=== PATIENT | male | born 1955 | race Caucasian/White ===

== ENCOUNTER 2018-08-25 18:46 | Emergency (ER) | payer BC, OTHER ==
[2018-08-25 19:15] LABS: Absolute Lymphocytes (CBC) 1.7 K/uL (0.7-4.9); Absolute Monocytes 0.6 K/uL (0.1-1.3); Absolute Neutrophil 2.7 K/uL (1.8-8.0); Basophils % 1.1 % (0-1.3); Eosinophils % 1.4 % (0-4.4); Hematocrit 36.7 % (39.6-49.0); Lymphocytes % 33.7 % (15.3-44.8); MCH 29.1 pg (27.0-35.0); MCV 88.8 fL (80-100); RBC Red Blood Cell Count 4.14 M/uL (4.33-5.43)
[2018-08-25 19:26] LABS: BUN Blood Urea Nitrogen 18 mg/dL (7-18); Bicarbonate 26 mmol/L (21-32); Glucose Level 101 mg/dL (74-106); Potassium 3.8 mmol/L (3.5-5.1); Sodium Level 141 mmol/L (136-145)
--- NOTE | 2018-08-25 19:54 | EDPHYS ---
Physician Documentation [facility] Name: Stephen Odell Age: 63 yrs Sex: Male : 1955 Arrival Date: 08/25/2018 Time: 18:48 Bed 2 Private MD: ED Physician Rayna Fajardo HPI: 08/25 19:48 This 63 yrs old Male presents to ER via EMS with complaints of Puncture Wound ma2 To Arm. 19:48 The patient or guardian complains of a laceration. The complaints affect the dorsal ma2 aspect of left forearm. Context: accidently lacerated left forearm with pocket knife . Onset: The symptoms/episode began/occurred suddenly, 1 hour(s) ago. Treatment prior to arrival includes: no previous treatment. Associated signs and symptoms: Pertinent positives: bleeding, Pertinent negatives: decreased range of motion, nausea, numbness, swelling, vomiting. Severity of symptoms: At their worst the symptoms were severe, in the emergency department the symptoms are unchanged. Historical: - Allergies: 19:02 No Known Allergies; sv - Home Meds: 19:02 Toprol XL Oral [Active]; Nexium Oral [Active]; sv - PMHx: 19:02 Hypertension; sv - PSHx: 19:02 Gastric Bypass; sv - Immunization history:: Adult Immunizations unknown. - Social history:: Patient/guardian denies using alcohol, street drugs, The patient lives with family, Smoking status: unknown. - Ebola Screening: : Patient negative for fever greater than or equal to 101.5 degrees Fahrenheit, and additional compatible Ebola Virus Disease symptoms Patient denies exposure to infectious person Patient denies travel to an Ebola-affected area in the 21 days before illness onset. ROS: 19:48 Constitutional: Negative for fever, chills, and weight loss, Cardiovascular: Negative ma2 for chest pain, palpitations, and edema, Respiratory: Negative for shortness of breath, cough, wheezing, and pleuritic chest pain. 19:48 Neuro: Negative for headache, weakness, numbness, tingling, and seizure. 19:48 MS/extremity: Positive for laceration, pain, paresthesias, puncture, Negative for decreased range of motion, rash, tenderness. 19:48 All other systems are negative. Exam: 19:48 Constitutional: This is a well developed, well nourished patient who is awake, alert, ma2 and in no acute distress. Head/Face: Normocephalic, atraumatic. Chest/axilla: Normal chest wall appearance and motion. Nontender with no deformity. No lesions are appreciated. Cardiovascular: Regular rate and rhythm with a normal S1 and S2. No gallops, murmurs, or rubs. Normal PMI, no JVD. No pulse deficits. Respiratory: Lungs have equal breath sounds bilaterally, clear to auscultation and percussion. No rales, rhonchi or wheezes noted. No increased work of breathing, no retractions or nasal flaring. Abdomen/GI: Soft, non-tender, with normal bowel sounds. No distension or tympany. No guarding or rebound. No evidence of tenderness throughout. MS/ Extremity: Pulses equal, no cyanosis. Neurovascular intact. Full, normal range of motion. Neuro: Awake and alert, GCS 15, oriented to person, place, time, and situation. Cranial nerves II-XII grossly intact. Motor strength 5/5 in all extremities. Sensory grossly intact. Cerebellar exam normal. Normal gait. 19:48 Musculoskeletal/extremity: puncture wound of left forearm with left radial artery laceration. Vital Signs: 18:42 BP 125 / 83; Pulse 57; Resp 20; Temp 97.8; Pulse Ox 100% ; Weight 117.93 kg; Height 5 sv ft. 9 in. (175.26 cm); Pain 0/10; 19:38 BP 131 / 86; Pulse 71; Resp 16; Pulse Ox 98% on R/A; ao 20:10 BP 131 / 92; Pulse 72; Resp 16; Pulse Ox 100% ; Pain 5/10; ao 18:42 Body Mass Index 38.39 (117.93 kg, 175.26 cm) sv MDM: 18:48 Patient medically screened. ma2 19:50 Differential diagnosis: left radial artery laceration 1 hour ago, tourniquet released ma2 in ER, will give tourniquet release q 15 min. Data reviewed: vital signs, nurses notes, radiologic studies. Counseling: I had a detailed discussion with the patient and/or guardian regarding: the historical points, exam findings, and any diagnostic results supporting the discharge/admit diagnosis, the presence of at least one elevated blood pressure reading (>120/80) during this emergency department visit, the need to transfer to another facility. ED course: discussed and accepted by hand surgeon at [facility] Dr. Do. 08/25 18:49 Order name: Basic Metabolic Panel sv 08/25 18:49 Order name: CBC with Diff sv 08/25 18:49 Order name: Creatinine for Radiology sv 08/25 18:49 Order name: Type And Screen sv 08/25 20:06 Order name: ABO/RH no charge EDMS 08/25 18:49 Order name: Labs collected and sent; Complete Time: 19:14 sv 08/25 19:14 Order name: IV Saline Lock - Large Bore; Complete Time: 19:14 sv 08/25 19:37 Order name: Dressing - Wound: pressure dressing, release tornique every 15 min; ma2 Complete Time: 20:14 Administered Medications: 19:00 Drug: NS 0.9% 1000 ml Route: IV; Rate: 1 bolus; Site: right antecubital; ao 19:50 Follow up: IV Status: Completed infusion; IV Intake: 1000ml ao 20:16 Follow up: IV Status: Infusion continued upon transfer ao 20:15 Drug: NS 0.9% 1000 ml {Note: Given to life flight.} Route: IV; Rate: 1 bolus; Site: ao left antecubital; 20:16 Follow up: IV Status: Infusion continued upon transfer ao Disposition: 08/25/18 19:53 Transfer ordered to [facility]. Diagnosis is Laceration of radial artery at forearm level, left arm. - Reason for transfer: Higher level of care. - Accepting physician is Dr. Do, hand surgeon . - Condition is Stable. - Problem is new. - Symptoms are unchanged. Signatures: Dispatcher [employer] EDTamie Barroso RN RN Fransisco Castro RN RN Rayna Albert MD MD ma2 Corrections: (The following items were deleted from the chart) 20:25 19:53 08/25/2018 19:53 Transfer ordered to [facility]. ao Diagnosis is Laceration of radial artery at forearm level, left arm. Reason for transfer: Higher level of care. Accepting physician is Dr. Do, hand surgeon . Condition is Stable. Problem is new. Symptoms are unchanged. ma2
--- NOTE | 2018-08-25 19:54 | ER ---
Nurse's Notes [facility] Name: Stephen Odell Age: 63 yrs Sex: Male : 1955 Arrival Date: 08/25/2018 Time: 18:48 Bed 2 Private MD: Diagnosis: Laceration of radial artery at forearm level, left arm Presentation: 08/25 18:42 Presenting complaint: EMS states: puncture wound to the left forearm by a pocket knife, sv went in about an inch. Pt drove from [facility] to [facility] station with knife still in place. EMS removed knife and applied a tourniquet at 1806. Blood loss about 500 mls. Pt was pale, diaphoretic and hypotensive, 18 G to R and L AC done and NS 1L and LR 1L infusing. Transition of care: patient was not received from another setting of care. Onset of symptoms was August 25, 2018 at 17:40. Care prior to arrival: IV initiated. 18 GA, in the left in the right antecubital area. 18:42 Method Of Arrival: EMS: [facility] sv 18:42 Acuity: KATRINA 2 sv 19:03 Risk Assessment: Do you want to hurt yourself or someone else? Patient reports no sv desire to harm self or others. Initial Sepsis Screen: Does the patient meet any 2 criteria? No. Patient's initial sepsis screen is negative. Does the patient have a suspected source of infection? No. Patient's initial sepsis screen is negative. Triage Assessment: 18:42 General: Appears uncomfortable, obese, well developed, Behavior is calm, cooperative, sv appropriate for age. Pain: Complains of pain in left arm Pain currently is 0 out of 10 on a pain scale. Pain began 1 hour ago. Is continuous. EENT: No signs and/or symptoms were reported regarding the EENT system. Neuro: Level of Consciousness is awake, alert, obeys commands, Oriented to person, place, time, situation, Moves all extremities. Speech is normal. Cardiovascular: Patient's skin is warm and dry. Rhythm is sinus rhythm. Respiratory: Respiratory effort is even, unlabored, Respiratory pattern is regular, symmetrical. Derm: Skin is normal. Injury Description: Puncture sustained to dorsal aspect of left forearm was sustained 1-2 hours ago. Historical: - Allergies: 19:02 No Known Allergies; sv - Home Meds: 19:02 Toprol XL Oral [Active]; Nexium Oral [Active]; sv - PMHx: 19:02 Hypertension; sv - PSHx: 19:02 Gastric Bypass; sv - Immunization history:: Adult Immunizations unknown. - Social history:: Patient/guardian denies using alcohol, street drugs, The patient lives with family, Smoking status: unknown. - Ebola Screening: : Patient negative for fever greater than or equal to 101.5 degrees Fahrenheit, and additional compatible Ebola Virus Disease symptoms Patient denies exposure to infectious person Patient denies travel to an Ebola-affected area in the 21 days before illness onset. Screenin:03 Abuse screen: Denies threats or abuse. Denies injuries from another. Nutritional sv screening: No deficits noted. Tuberculosis screening: No symptoms or risk factors identified. Fall Risk None identified. Assessment: 19:10 General: Appears in no apparent distress. uncomfortable, Behavior is appropriate for ao age. Pain: Complains of pain in left arm. Neuro: Level of Consciousness is awake, alert, obeys commands, Oriented to person, place, time, situation, Appropriate for age Moves all extremities. Full function Speech is normal. Cardiovascular: Heart tones S1 S2 Capillary refill is sluggish in left fingers. Respiratory: Airway is patent Respiratory effort is even, unlabored, Respiratory pattern is regular, symmetrical, Breath sounds are clear bilaterally. GI: Abdomen is round obese. : No signs and/or symptoms were reported regarding the genitourinary system. EENT: No signs and/or symptoms were reported regarding the EENT system. Derm: Skin is black, Left arm. Musculoskeletal: No signs and/or symptoms reported regarding the musculoskeletal system. Injury Description: Puncture sustained to left arm is Applied dressing in the left forearm by day shift. 19:50 Reassessment: Report given to [employer]. Estimated time is 23 min. Reassessment: ao Release tourniquet as order by Dr berry. bleeding controlled. reapplied tourniquet with less pressure. 19:55 Reassessment: Report given to Ulises HAJI Waiting on [employer]. ao 20:14 Reassessment: Hand off care to [place] [employer]. Patient left ER stable. ao Vital Signs: 18:42 BP 125 / 83; Pulse 57; Resp 20; Temp 97.8; Pulse Ox 100% ; Weight 117.93 kg; Height 5 sv ft. 9 in. (175.26 cm); Pain 0/10; 19:38 BP 131 / 86; Pulse 71; Resp 16; Pulse Ox 98% on R/A; ao 20:10 BP 131 / 92; Pulse 72; Resp 16; Pulse Ox 100% ; Pain 5/10; ao 18:42 Body Mass Index 38.39 (117.93 kg, 175.26 cm) sv ED Course: 18:42 Maintain EMS IV. Dressing intact. Good blood return noted. Site clean \T\ dry. Gauge \T\ sv site: 18G R and L AC. IV is patent, is intact, with fluids infusing freely, with good blood return. 18:45 Initial lab(s) drawn, by me, sent to lab. T\T\S collected, blood band applied to patient. sv 18:45 groundwater monitoring technician on. Pulse ox on. NIBP on. sv 18:48 Patient arrived in ED. ss 18:48 Rayna Berry MD is Attending Physician. ma2 18:48 Tamie Epps, DANYEL is Primary Nurse. sv 18:54 Triage completed. sv 19:03 Arm band placed on right wrist. sv 19:03 Patient has correct armband on for positive identification. Bed in low position. Adult sv w/ patient. 19:14 Report given to Fransisco MONTAÑO and Carin MONTAÑO. sv 19:31 Primary Nurse role handed off by Tamie Epps, DANYEL sv 19:37 Fransisco Zendejas, RN is Primary Nurse. ao 20:24 No provider procedures requiring assistance completed. Patient transferred, IV remains ao in place. Administered Medications: 19:00 Drug: NS 0.9% 1000 ml Route: IV; Rate: 1 bolus; Site: right antecubital; ao 19:50 Follow up: IV Status: Completed infusion; IV Intake: 1000ml ao 20:16 Follow up: IV Status: Infusion continued upon transfer ao 20:15 Drug: NS 0.9% 1000 ml {Note: Given to life flight.} Route: IV; Rate: 1 bolus; Site: ao left antecubital; 20:16 Follow up: IV Status: Infusion continued upon transfer ao Intake: 19:50 IV: 1000ml; Total: 1000ml. ao Outcome: 19:53 ER care complete, transfer ordered by MD. ma2 20:24 Transferred by helicopter to [facility], Transfer form completed. X-rays sent ao w/ patient. 20:24 Condition: stable 20:25 Patient left the ED. ao Signatures: Tamie Epps, RN Lucy Ferreira RN RN ss Ortiz, Alex RN Rayna Monique MD MD ma2
[2018-08-25] MEDS ORDERED: NA CHLORIDE 0.9% 1,000 ML ONE (20:17)
== END 2018-08-25 20:25 | disposition short-term general hospital (02) ==
LOC: ER 18:46
DX: S55.112A Laceration of radial artery at forearm level, left arm, initial encounter (principal); W26.0XXA Contact with knife, initial encounter; Y93.9 Activity, unspecified; Y92.9 Unspecified place or not applicable; I10 Essential (primary) hypertension
CPT/HCPCS: 36415; 80048; 85025; 86850; 86900; 86901; 96360; 99285; J7030